=== PATIENT | female | born 1960 | race Caucasian/White ===

== ENCOUNTER 2022-04-12 01:33 | Day surgery (SDC) | payer MEDICARE, SELFPAY ==
[2022-03-31 14:04] VITALS: BMI 35.4
[2022-04-12 07:17] VITALS: BP 145/70; PULSE 55; RESP 18; TEMP 36.5; O2SAT 100; BMI 35.5
--- NOTE | 2022-04-12 07:39 | WPDANESEPPF ---
Anes - Initial Pre Proc Eval Procedure: Operation Date: 04/12/22 08:15 Proposed Procedures p Screening Colonoscopy - Isai Kumar MD Date/Time: 04/12/22 07:39 Surgeon: Isai Kumar MD Pre Op Diagnosis: neoplasm screening Patient Data Age: 62 Gender: F Height: 1.57 m Weight: 88.1 kg Last Vital Signs Temp 97.7 F 04/12/22 07:17 Pulse 55 L 04/12/22 07:17 Resp 18 04/12/22 07:17 BP 145/70 H 04/12/22 07:17 Pulse Ox 100 04/12/22 07:17 O2 Del Method Room Air 04/12/22 07:17 Allergies Allergy/AdvReac Type Severity Reaction Status Date / Time Penicillins Allergy Unknown Rash Verified 04/12/22 07:23 Home Medications Medication Instructions Recorded Confirmed Type fluoxetine 20 mg capsule (Prozac) 20 mg PO DAILY #30 caps 02/16/22 04/12/22 Rx meloxicam 15 mg tablet 15 mg PO DAILY #30 tabs 02/16/22 04/12/22 Rx oxybutynin chloride 5 mg tablet 5 mg PO DAILY #30 tabs 02/16/22 04/12/22 Rx amlodipine 5 mg tablet 5 mg PO DAILY 03/31/22 04/12/22 History atorvastatin 80 mg tablet 80 mg PO DAILY 03/31/22 04/12/22 History clopidogrel 75 mg tablet 75 mg PO DAILY 03/31/22 04/12/22 History metoprolol tartrate 100 mg tablet 100 mg PO BID 03/31/22 04/12/22 History Patient hx anesthesia problems: none Family hx anesthesia problems: none Results Review: All pre-operative results and documents have been reviewed as part of the pre-operative evaluation. [facility] Past Medical History Medical History BMI 35.0-35.9,adult Chronic bilateral low back pain without sciatica Essential (primary) hypertension Low kidney function Major depressive disorder, recurrent episode, unspecified Mixed hyperlipidemia TIA (transient ischemic attack) Tobacco abuse Family History Family History Father Hypertension Family history of diabetes mellitus in first degree relative Mother Cerebrovascular accident Other Diabetes mellitus Family history of mental disorder Social History Social History Smoking packs per day: 1 Smoking cigarettes per day: 20.0 Years smoked: 45 Smoking pack-years: 45.00 Smoking status: Current every day smoker Tobacco type: cigarettes Alcohol intake: current Drinks per week: 14 Substance use: current Substance use type: marijuana Last use: weekends Living arrangements: with family Spiritual care concerns: No Anes - Eval Final PreProcedure Day of Procedure 04/12/22 07:39 Patient weight: obese Heart: regular rate and rhythm Lungs: clear to auscultation Airway: Mallampati scale class III (two loose teeth front bottom) Neurological: alert and oriented Last oral intake: >/= 8 hours ASA classification: III Emergent: no Anesthetic plan: proceed Anesthesia type and monitoring: general GIVS Results Review: All pre-operative results and documents have been reviewed as part of the pre-operative evaluation. Informed Consent: The patient's anesthetic plan and its attendant risks and benefits were discussed with the patient/family/POA. Questions were solicited and answers provided to the satisfaction of the patient/family/POA.
[2022-04-12] MEDS: LACTATED RINGERS 1,000 ML 150 ML IV CONT (07:40)
--- NOTE | 2022-04-12 08:12 | PM.HPGS ---
History of Present Illness History of Present Illness Consent: Risks, benefits, and alternatives have been discussed and questions answered. Patient agrees to proceed with procedure. Chief complaint: neoplasm screening Narrative: Katelin Sutherland is a 62 year old female Referred for colon cancer screening. This is her 1st colonoscopy. Review of Systems Review of Systems: All systems reviewed & are unremarkable except as noted in HPI and below PMFSH Past Medical History Medical History BMI 35.0-35.9,adult Chronic bilateral low back pain without sciatica Essential (primary) hypertension Low kidney function Major depressive disorder, recurrent episode, unspecified Mixed hyperlipidemia TIA (transient ischemic attack) Tobacco abuse Family History Family History Father Hypertension Family history of diabetes mellitus in first degree relative Mother Cerebrovascular accident Other Diabetes mellitus Family history of mental disorder Social History Social History Smoking packs per day: 1 Smoking cigarettes per day: 20.0 Years smoked: 45 Smoking pack-years: 45.00 Smoking status: Current every day smoker Tobacco type: cigarettes Alcohol intake: current Drinks per week: 14 Substance use: current Substance use type: marijuana Last use: Living arrangements: with family Spiritual care concerns: No Meds Home Medications and Allergies Home Medications Medication Instructions Recorded Confirmed Type fluoxetine 20 mg capsule (Prozac) 20 mg PO DAILY #30 caps 02/16/22 04/12/22 Rx meloxicam 15 mg tablet 15 mg PO DAILY #30 tabs 02/16/22 04/12/22 Rx oxybutynin chloride 5 mg tablet 5 mg PO DAILY #30 tabs 02/16/22 04/12/22 Rx amlodipine 5 mg tablet 5 mg PO DAILY 03/31/22 04/12/22 History atorvastatin 80 mg tablet 80 mg PO DAILY 03/31/22 04/12/22 History clopidogrel 75 mg tablet 75 mg PO DAILY 03/31/22 04/12/22 History metoprolol tartrate 100 mg tablet 100 mg PO BID 03/31/22 04/12/22 History Allergies Allergy/AdvReac Type Severity Reaction Status Date / Time Penicillins Allergy Unknown Rash Verified 04/12/22 07:23 Vital Signs Vital Signs - 24 hr 04/12/22 07:17 Temperature 36.5 C Pulse Rate 55 L Respiratory Rate 18 Blood Pressure 145/70 H Pulse Oximetry 100 Oxygen Delivery Room Air Exam Const: General: alert Orientation/consciousness: patient oriented x3 Resp: Auscultation: clear to auscultation bilaterally Cardio: Rhythm: regular rhythm GI: GI Palp: Yes Soft to palpation and No Tenderness to palpation present (GI) Neuro: General: patient oriented x3 Assessment and Plan Assessment and plan (1) Colon cancer screening: Code(s): Z12.11 - Encounter for screening for malignant neoplasm of colon Status: Acute Assessment and Plan: Colonoscopy with possible biopsy or polypectomy or cautery or injection of substances.
[2022-04-12 08:46] VITALS: BP 142/73; PULSE 74; RESP 29; O2SAT 100
[2022-04-12 08:56] VITALS: BP 146/84; PULSE 61; RESP 25; O2SAT 100
[2022-04-12 09:06] VITALS: BP 131/54; PULSE 60; RESP 18; O2SAT 99
== END 2022-04-12 09:15 | disposition home or self-care (01) ==
PROVIDERS: PCP Family Medicine; Visit Provider Internal Medicine Gastroenterology
PROC: 0DJD8ZZ Inspection of Lower Intestinal Tract, Via Natural or Artificial Opening Endoscopic (ICD-10-PCS; CPT 45378; principal; 2022-04-12 08:15)
DX: Z12.11 Encounter for screening for malignant neoplasm of colon (principal); D12.4 Benign neoplasm of descending colon; D12.5 Benign neoplasm of sigmoid colon; K64.8 Other hemorrhoids; I10 Essential (primary) hypertension; E78.5 Hyperlipidemia, unspecified; Z86.73 Personal history of transient ischemic attack (TIA), and cerebral infarction without residual deficits; F17.210 Nicotine dependence, cigarettes, uncomplicated
CPT/HCPCS: 45385; 88305; J2704; J7120